=== PATIENT | female | born 1945 | race Caucasian/White ===

== ENCOUNTER 2017-12-15 20:38 | Inpatient (IN) | payer MEDICARE, OTHER ==
[~2017-12-15] VITALS: Ht 165.1 cm; Wt 78.0 kg
--- NOTE | ~2017-12-15 | PROC ---
[address] [address] PROCEDURE REPORT Name: LUIGI LOREDO Room: [address] IN M.R.#: [id number] Admission: 12/16/17 Attend Phys: Jenniffer Christiansen MD Discharge: Date of : 49 Report #: [id number] THIS REPORT FOR: //name// For GI report, Please see the Provation report in Perceptive 7 content. By: 0658Medical Records Staff DENNY /GIANA
[~2017-12-15 20:38] MED LIST: CARAFATE 1 GM TA1 G1 PO; CELEXA 20 MG TA20 M1; CELEXA 20 MG TA20 MG PO; DYAZIDE 37.5-21 EACH PO; IMIPRAMINE HCL50 M2 PO; LIPITOR20 MG PO; OMEPRAZOLE MAGN20 MG PO; VERAPAMIL E.R240 M1; VERAPAMIL E.R240 M1 PO; VERAPAMIL HCL 880 M1; VERAPAMIL HCL 880 M1 PO
[2017-12-15 20:44] VITALS: BP 186/90
[2017-12-15] MEDS ORDERED: HYDROCHLOROTHIA25 M2 PO (20:48)
[2017-12-15] MEDS ORDERED: CELEXA40 MG PO (20:48)
[2017-12-15] MEDS ORDERED: VERAPAMIL E.R240 M1 PO (20:49)
[2017-12-15] MEDS ORDERED: CALAN120 MG (20:49)
[2017-12-15] MEDS ORDERED: CRESTOR10 MG PO (20:49)
[2017-12-15] MEDS ORDERED: METFORMIN HCL500 MG PO (20:50)
[2017-12-15] MEDS ORDERED: AVAPRO 150 MG150 M1 PO (20:50)
[2017-12-15] MEDS ORDERED: CALCIUM 500 +1 EAC5 PO (20:50)
[2017-12-15] MEDS ORDERED: ASPIR 8181 MG PO (20:51)
[2017-12-15] MEDS ORDERED: VITAMINC500 PO (20:51)
[2017-12-15] MEDS ORDERED: BIOTIN 800 MCG1 EACH PO (20:51)
[2017-12-15] MEDS ORDERED: VITAMIN D1000 UNI1 PO (20:51)
[2017-12-15 21:02] LABS: ABSOLUTE BASOPHILS 0.1 thou/uL (0.0-0.2); ABSOLUTE EOSINOPHILS 0.2 thou/uL (0.0-0.7); ABSOLUTE LYMPHOCYTES 3.7 thou/uL (0.8-5.3); ABSOLUTE MONOCYTES 0.7 thou/uL (0.0-1.2); ABSOLUTE NEUTROPHILS 5.8 thou/uL (1.6-8.1); BASOPHILS 1.3 %; EOSINOPHILS 1.8 %; HEMATOCRIT 39.3 % (37.0-47.0); HEMOGLOBIN 13.6 gm/dL (12.0-15.0); LYMPHOCYTES 35.4 %; MCH 33.5 pg (26.0-34.0); MCHC 34.6 g/dL (28.0-37.0); MCV 96.6 fL (80.0-100.0); MONOCYTES 6.5 %; MPV 7.7 fl. (7.2-11.1); NUCLEATED RBCS 0 /100WBC; PLATELET COUNT* 394 thou/uL (150-400); RBC 4.07 mil/uL (4.20-5.00); RDW-CV 13.1 % (10.5-14.5); WBC 10.5 thou/uL (4.0-11.0)
[2017-12-15 21:07] LABS: ANION GAP 10 mmol/L (7-16); BUN 13 mg/dL (7-18); CALCIUM 9.6 mg/dL (8.5-10.1); CHLORIDE 100 mmol/L (98-107); CO2 30 mmol/L (21-32); CREATININE 0.8 mg/dL (0.6-1.3); GLUCOSE 125 mg/dL (70-99); SODIUM 140 mmol/L (136-145)
[2017-12-15 21:08] LABS: PROTIME 10.1 Seconds (9.20-11.50)
[2017-12-15 21:17] LABS: POTASSIUM 2.8 mmol/L (3.5-5.1)
[2017-12-15 21:18] LABS: ALBUMIN 4.4 g/dL (3.4-5.0); ALKALINE PHOSPHATASE 99 U/L (46-116); LIPASE 175 U/L (73-393); NT-PRO BRAIN NAT PEPTIDE 87 pg/mL (<300); SGOT 16 U/L (15-37); SGPT 22 U/L (30-65); TOTAL BILIRUBIN 0.7 mg/dL (<0.1-1.0); TOTAL PROTEIN 7.9 g/dL (6.4-8.2); TROPONIN-I LEVEL <0.06 ng/mL (<0.06)
[2017-12-15 23:14] LABS: URINE BILIRUBIN NEGATIVE (Negative); URINE BLOOD NEGATIVE (Negative); URINE CLARITY CLEAR; URINE COLOR YELLOW; URINE GLUCOSE-RANDOM NEGATIVE (Negative); URINE KETONES NEGATIVE (Negative); URINE LEUKOCYTES-REFLEX NEGATIVE (Negative); URINE NITRITE-REFLEX NEGATIVE (Negative); URINE PROTEIN NEGATIVE (Negative); URINE UROBILINOGEN 0.2 E.U./dl (0.2-1.0)
[2017-12-16 01:49] VITALS: BP 156/60
--- NOTE | 2017-12-16 03:13 | NUR ---
PATIENT ADMITTED TO THE FLOOR FOR CHEST PAIN. SR ON THE MONITOR. IV POTASSIUM INFUSING PER PROTOCAL. DENIES ANY FURTHER COMPLAINTS OF CP. NO SIGN OF DISTRESS. EDUCATION ON USE OF CALL LIGHT, BED CONTROL, AND TV. DENIES SOA, NO SIGN OF DISTRESS. CARE PLAN INITIATED. WILL CONT. TO MONITOR.
[2017-12-16 04:00] VITALS: BP 120/49
[2017-12-16 04:57] LABS: HEMOGLOBIN 12.7 gm/dL (12.0-15.0); MCH 32.7 pg (26.0-34.0); MCHC 34.3 g/dL (28.0-37.0); MCV 95.3 fL (80.0-100.0); RBC 3.88 mil/uL (4.20-5.00); RDW-CV 12.6 % (10.5-14.5); WBC 11.8 thou/uL (4.0-11.0)
[2017-12-16 05:44] LABS: CALCIUM 9.5 mg/dL (8.5-10.1); CREATININE 0.8 mg/dL (0.6-1.3); POTASSIUM 3.8 mmol/L (3.5-5.1); TOTAL BILIRUBIN 0.6 mg/dL (<0.1-1.0); TOTAL PROTEIN 6.8 g/dL (6.4-8.2)
[2017-12-16 07:30] VITALS: BP 151/62
[2017-12-16] MEDS ORDERED: VERAPAMIL E.R240 M1 PO (08:57)
--- NOTE | 2017-12-16 10:11 | EKG ---
[place] [address] ELECTROCARDIOGRAM REPORT Name: LUIGI LOREDO Room: [address] ADM IN M.R.#: [id number] Admission: 12/16/17 Attend Phys: Jenniffer Christiansen MD Discharge: Date of : 49 Report #: [id number] THIS REPORT FOR: //name// [facility] ED Test Date: 2017-12-15 Test Time: 20:43:32 Pat Name: LUIGI LOREDO Department: Room: [facility] Gender: F Detail Technician: EDDIE Campbell : 1945 Requested By: Michelle Ramon Order Number: [id number] MD: Jc Ocampo Measurements Intervals [place] Rate: 79 P: -42 PA: 212 QRS: -26 QRSD: 108 T: 39 QT: 407 QTc: 467 Interpretive Statements Sinus rhythm nonspecific st changes Borderline prolonged PA interval Borderline left axis deviation Low voltage, precordial leads Baseline wander in lead(s) III,aVF,V3 Compared to ECG 11/08/2015 14:34:46 Low QRS voltage now present Electronically Signed On 12-16-2017 10:11:35 CDT by Jc Ocampo [email or web address] <ELECTRONICALLY SIGNED> By: Jc Ocampo MD, FACC 12/16/17 1011 42 42 Jc Ocampo MD, FAC /EPI
[2017-12-16 12:08] VITALS: BP 157/69
--- NOTE | 2017-12-16 12:25 | NUR ---
MET WITH PT TO DISCUSS HOME SITUATION/DC PLANNING. PT LIVES ALONE. STATES SHE IS VERY INDEPENDENT AND ACTIVE. USES NO EQUIPMENT OR HOME CARE. SHE DOESN'T HAVE A DPOA, INFO AND ED GIVEN. PT PLANS TO RETURN HOME AT [place]. WILL FOLLOW
--- NOTE | 2017-12-16 14:16 | NUR ---
RECEIVED PT CARE 0700. PT IS ALERT AND ORIENTED X4. VSS. POSTPARTUM NURSE TRACING SR WITH A 1ST DEG. SHE DENIES ANY SOA. O2 SAT 100% ON ROOM AIR. UP AD JANAK IN ROOM. GAIT IS STEADY. IVF INFUSING. HOME MEDICATIONS RECONCILED WITH PATIENT AND [facility] GI WAS CONSULTED AND SAW PATIENT THIS AM. NEW ORDERS RECEIVED. NPO FOR ABDOMINAL US AND ADVANCED TO CLEAR LIQUIDS POST US. PATIENT C/O LUQ PAIN. PRN PAIN MEDICATION GIVEN WITH GOOD RELIEF. AM ASSESSMENT CHARTED. MEDS PER MAR. PATIENT UPDATED ON PLAN OF CARE AND AGREEABLE. WILL CONTINUE TO MONITOR.
--- NOTE | 2017-12-16 19:14 | NUR ---
PATIENT PROGRESSING TOWARDS GOALS. PAIN CONTROLLED WITH PRN PAIN MEDICATIONS. NO COMPLAINTS OF SOA. UP IN ROOM WITH BATHROOM PRIVILEDGES. GAIT IS STEADY. PLANNING FOR NPO AFTER 6AM TOMORROW FOR EGD TOMORROW BY DR POP. CONSENTS SIGNED AND ON FRONT OF CHART. SHE IS TOLERATING HER DIET WELL WITHOUT NAUSEA OR VOMITING. PATIENT UPDATED ON PLAN OF CARE AND IS AGREEABLE. HOURLY ROUNDING CHARTED. CALL LIGHT WITHIN REACH. WILL CONTINUE TO MONITOR.
[2017-12-16 20:00] VITALS: BP 152/70
--- NOTE | 2017-12-17 03:56 | NUR ---
PATIENT COMPLAINED OF HEADACH, TYLENOL GIVEN. FOLLOW UP PENDING. IVF AT 80 HOUR. NPO 6AM TODAY FOR EGD. NO OTHER COMPLAINTS. NO SIGN OF DISTRESS. PO INTAKE GOOD. UP WITH SBA ASSIST AT [facility]. UP AD JANAK DURING DAY. WILL PROCEED WITH CURRENT PLAN OF CARE AT THIS TIME.
[2017-12-17 03:57] VITALS: BP 129/46
[2017-12-17 05:35] LABS: ABSOLUTE BASOPHILS 0.1 thou/uL (0.0-0.2); ABSOLUTE EOSINOPHILS 0.2 thou/uL (0.0-0.7); ABSOLUTE LYMPHOCYTES 2.7 thou/uL (0.8-5.3); ABSOLUTE MONOCYTES 0.6 thou/uL (0.0-1.2); ABSOLUTE NEUTROPHILS 4.4 thou/uL (1.6-8.1); BASOPHILS 1.2 %; EOSINOPHILS 2.2 %; HEMATOCRIT 34.2 % (37.0-47.0); HEMOGLOBIN 11.8 gm/dL (12.0-15.0); LYMPHOCYTES 33.3 %; MCH 33.6 pg (26.0-34.0); MCHC 34.5 g/dL (28.0-37.0); MCV 97.1 fL (80.0-100.0); MONOCYTES 7.6 %; NUCLEATED RBCS 0 /100WBC; PLATELET COUNT* 307 thou/uL (150-400); POLYS 55.7 %; RBC 3.52 mil/uL (4.20-5.00)
[2017-12-17 06:04] LABS: CALCIUM 8.7 mg/dL (8.5-10.1); CREATININE 0.7 mg/dL (0.6-1.3); POTASSIUM 3.7 mmol/L (3.5-5.1)
[2017-12-17 09:00] VITALS: BP 125/51
[2017-12-17 17:16] VITALS: BP 137/67
[2017-12-17 20:00] VITALS: BP 133/51
--- NOTE | 2017-12-17 20:12 | NUR ---
I ASSUMED CARE OF THE PATIENT AT 0700. SHE UIS ALERT AND ORIENTED X4. BED IS IN THE LOW LOCKED POSITION AND CALL LIGHT IS IN REACH. PATIENT IS UP AD JANAK TO THE RESTROOM. HER NEEDS ARE MET AND PAIN IS MANAGED. SHE HAS A LINGERING HEADACHE THAT SEEMS TO BE BEST MANAGED WITH COFFEE. SHE HAD AN EGD AND WILL STAY FOR A PIPPIDA SCAN TOMORROW. HOURLY ROUNDING WAS COMPLETED. SHE HAS A GOOD APPETITE WHEN SHE ISN'T NPO. PATIENT HAS ANXIETY THAT SEEMS TO BE MANAGED WITH CALM CONVERSATION. SHE IS ACHS, BUT WITHOUT SLIDING SCALE. WILL CONTINUE TO MONITOR.
[2017-12-18] VITALS: BP 126/61
[2017-12-18 04:58] LABS: ABSOLUTE BASOPHILS 0.1 thou/uL (0.0-0.2); ABSOLUTE EOSINOPHILS 0.2 thou/uL (0.0-0.7); ABSOLUTE LYMPHOCYTES 3.4 thou/uL (0.8-5.3); ABSOLUTE MONOCYTES 0.7 thou/uL (0.0-1.2); ABSOLUTE NEUTROPHILS 4.4 thou/uL (1.6-8.1); BASOPHILS 1.2 %; EOSINOPHILS 2.5 %; HEMOGLOBIN 11.7 gm/dL (12.0-15.0); LYMPHOCYTES 38.7 %; MCH 33.6 pg (26.0-34.0); MCHC 34.4 g/dL (28.0-37.0); MCV 97.5 fL (80.0-100.0); MONOCYTES 7.5 %; MPV 7.8 fl. (7.2-11.1); NUCLEATED RBCS 0 /100WBC; PLATELET COUNT* 302 thou/uL (150-400); POLYS 50.1 %; RBC 3.49 mil/uL (4.20-5.00); WBC 8.8 thou/uL (4.0-11.0)
[2017-12-18 05:14] LABS: ALBUMIN 3.4 g/dL (3.4-5.0); CREATININE 0.7 mg/dL (0.6-1.3); POTASSIUM 3.3 mmol/L (3.5-5.1); TOTAL BILIRUBIN 0.8 mg/dL (<0.1-1.0); TOTAL PROTEIN 6.2 g/dL (6.4-8.2)
--- NOTE | 2017-12-18 05:31 | NUR ---
PT CARE ASSUMED AFTER REPORT. ASSESSMENT COMPLETE. MED/SURG. DENIES PAIN. NPO SINCE MIDNIGHT FOR SCAN TODAY. UP AD JANAK WITH STEADY GAIT. CALL LIGHT IN REACH. BED IN LOWEST POSITION. PROGRESSING TOWARDS GOALS.
[2017-12-18 06:48] LABS: ESR (SEDRATE) 5 mm/hr (0-30)
[2017-12-18 08:03] VITALS: BP 130/60
--- NOTE | 2017-12-18 10:03 | NUR ---
PT OFF UNIT TO NUC MED.
[2017-12-18 13:14] VITALS: BP 130/60
[2017-12-18 13:34] VITALS: BP 130/60
--- NOTE | 2018-01-04 15:01 | CON ---
[address] [address] CONSULTATION Name: LUIGI LOREDO Room: [address] IN M.R.#: [id number] Admission: 12/16/17 Attend Phys: Jenniffer Christiansen MD Discharge: 12/18/17 Date of : 49 Report #: [id number] THIS REPORT FOR: //name// CC: Jenniffer COLEMAN DO Luigi Coleman DICTATED BY: Mckenna Lawton [facility] DATE OF SERVICE: 12/16/2017 Please note at the time of this dictation, the patient was seen and physically examined by myself. REASON FOR CONSULTATION: Left upper quadrant pain radiating into her chest. HISTORY OF PRESENT ILLNESS: The patient is a 72-year-old female who presented to the Emergency Room after yesterday morning, she awakened and had a cinnamon roll. She said suddenly after eating that she had this left upper quadrant pain that radiated up into her chest. She states shortly thereafter she had a bowel movement and her symptoms subsided. She denied eating anything else the rest of the day until around 7 last evening in which she had mashed potatoes and gravy and a breaded pork chop. She states immediately after eating, she had a little bit of nausea, but no vomiting. She had pain in that left upper quadrant radiating up into her chest again like it was earlier in the day and also radiating into her back. She states she has been having this pain in her back, usually occurring on a daily basis, mainly in the evening time when she is sitting and is not physically active. Because of this pain, this prompted her to come in to be further evaluated. The patient was last seen by us in November of 2016 in which she underwent a double. It was noted on her EGD that she had Sosa's esophagus and a hiatal hernia with repeat in 2 years and to stay on her PPI. Colonoscopy showed internal hemorrhoids and to use MiraLax at that time. The patient states she is not having any difficulty swallowing at the present time. However, over the last several weeks to months, she has noted possibly intermittently an occasional inability to swallow a pill and then it will go down on its own once she relaxes and does not get anxious about it. ALLERGIES: BETA BLOCKERS and DEMEROL. MEDICATIONS: From home include omeprazole, Carafate, Celexa, hydrochlorothiazide, verapamil, Crestor, Glucophage, Avapro, Tums, vitamin C, aspirin and Biotene. PAST MEDICAL HISTORY: Hypertension, high cholesterol, anxiety and depression. She did have MRSA in 2010, [place] [address] CONSULTATION Name: LUIGI LOREDO Room: [address] IN M.R.#: [id number] Admission: 12/16/17 Attend Phys: Jenniffer Christiansen MD Discharge: 12/18/17 Date of : 49 Report #: [id number] PAST SURGICAL HISTORY: Hysterectomy and a pacemaker temporarily back in 1993. FAMILY HISTORY: Noncontributory. SOCIAL HISTORY: Denies any alcohol, tobacco or illegal drug use. REVIEW OF SYSTEMS: Twelve-point review of systems is essentially negative except what is mentioned in the HPI. PHYSICAL EXAMINATION: VITAL SIGNS: Temperature 36.8, pulse 64, respirations 16, blood pressure 151/62. HEART: Regular rate and rhythm. LUNGS: Clear. ABDOMEN: Soft, positive bowel sounds in all 4 quadrants with some slight left upper quadrant to epigastric tenderness noted to palpation. LABORATORY DATA: Hemoglobin on admission was 13.6. She is now 12.7, white count is 11.8, hematocrit is 37 and platelets 365. Sodium 141, potassium 2.8 on admission. She is up to 3.8 after replacement, chloride 101, CO2 of 30, BUN is 11, creatinine 0.8, GFR 71, glucose is 108. LFTs are completely normal. CT of the abdomen and pelvis showed a large hiatal hernia, otherwise negative. IMPRESSION: 1. Left upper quadrant pain radiating into her chest after eating. 2. History of Sosa's esophagus. Last EGD in November 2016. 3. Large hiatal hernia. 4. Dysphagia intermittently, very mild. PLAN: 1. Ultrasound of her abdomen. 2. Continue her PPI. 3. Further recommendations to be made once the ultrasound has been performed. Thank you for allowing us to participate in this patient's care. Please do not hesitate to call with any questions in regard to this consult. ADDENDUM I have personally seen and examined the patient and reviewed labs and imaging studies. The patient with left upper quadrant abdominal pain, which radiates to the chest. The patient has history of large hiatal hernia and Sosa's esophagus, which I think is contributing to this pain and discomfort. She has had upper endoscopy in 11/2016. Abdominal ultrasound has been ordered and pending results. I will consider repeating EGD and if it is negative, consider [address] [address] CONSULTATION Name: LUIGI LOREDO Room: [address]#: [id number] Admission: 12/16/17 Attend Phys: Jenniffer Christiansen MD Discharge: 12/18/17 Date of : 49 Report #: [id number] motility agents to further improve gastric emptying. This in turn will improve the dyspepsia and left upper quadrant pain. <ELECTRONICALLY SIGNED> By: Ghada Platt MD 01/04/18 1501 1146 [id number] Platt MD /nt
== END 2017-12-18 14:27 | disposition home or self-care (01) | DRG 392 ==
LOC: M.ERS 20:38 → M.TBA-ER 12-16 00:17 → M.2W 12-16 00:17
PROVIDERS: Emergency Medicine; Internal Medicine; Internal Medicine Gastroenterology; ADMIT Internal Medicine
PROC: 0DJ08ZZ Inspection of Upper Intestinal Tract, Via Natural or Artificial Opening Endoscopic (ICD-10-PCS; principal; 2017-12-17)
DX: K44.9 Diaphragmatic hernia without obstruction or gangrene (principal); R04.2 Hemoptysis; E87.6 Hypokalemia; F41.9 Anxiety disorder, unspecified; E86.0 Dehydration; I10 Essential (primary) hypertension; R13.10 Dysphagia, unspecified; E78.00 Pure hypercholesterolemia, unspecified; K22.719 Barrett's esophagus with dysplasia, unspecified; Z79.899 Other long term (current) drug therapy; Z88.8 Allergy status to other drugs, medicaments and biological substances; Z79.82 Long term (current) use of aspirin; Z86.14 Personal history of Methicillin resistant Staphylococcus aureus infection

== ENCOUNTER → 2018-01-22 | Outpatient (CLI) | payer MEDICARE, OTHER ==
[~2018-01-22] MED LIST changes: +ASPIR 8181 MG PO; +AVAPRO 150 MG150 M1 PO; +BIOTIN 800 MCG1 EACH PO; +CALAN120 MG; +CALCIUM 500 +1 EAC5 PO; +CELEXA40 MG PO; +CRESTOR10 MG PO; +HYDROCHLOROTHIA25 M2 PO; +METFORMIN HCL500 MG PO; +VITAMIN D1000 UNI1 PO; +VITAMINC500 PO
== END ==
LOC: M.NUC 07:30
DX: K31.84 Gastroparesis (principal)

== ENCOUNTER 2018-09-02 02:00 | Inpatient (IN) | payer MEDICARE, OTHER ==
[2018-09-02] VITALS (7 sets, daily range): BP systolic 127–160; BP diastolic 56–69
[~2018-09-02] VITALS: Ht 165.1 cm; Wt 74.0 kg
[2018-09-02 02:34] LABS: ABSOLUTE BASOPHILS 0.1 thou/uL (0.0-0.2); ABSOLUTE EOSINOPHILS 0.1 thou/uL (0.0-0.7); ABSOLUTE LYMPHOCYTES 3.2 thou/uL (0.8-5.3); ABSOLUTE MONOCYTES 0.7 thou/uL (0.0-1.2); ABSOLUTE NEUTROPHILS 5.9 thou/uL (1.6-8.1); BASOPHILS 1.4 %; EOSINOPHILS 1.4 %; HEMATOCRIT 39.8 % (37.0-47.0); HEMOGLOBIN 13.9 gm/dL (12.0-15.0); LYMPHOCYTES 31.6 %; MCH 33.3 pg (26.0-34.0); MCHC 34.8 g/dL (28.0-37.0); MCV 95.9 fL (80.0-100.0); MONOCYTES 6.8 %; MPV 7.5 fl. (7.2-11.1); NUCLEATED RBCS 0 /100WBC; PLATELET COUNT* 396 thou/uL (150-400); POLYS 58.8 %; RBC 4.16 mil/uL (4.20-5.00); RDW-CV 12.4 % (10.5-14.5)
[2018-09-02 02:43] LABS: ANION GAP 14 mmol/L (7-16); BUN 20 mg/dL (7-18); CALCIUM 9.1 mg/dL (8.5-10.1); CHLORIDE 99 mmol/L (98-107); CO2 25 mmol/L (21-32); CREATININE 1.2 mg/dL (0.6-1.3); GLUCOSE 169 mg/dL (70-99); POTASSIUM 3.1 mmol/L (3.5-5.1); SODIUM 138 mmol/L (136-145)
[2018-09-02 02:44] LABS: APTT 28.4 Seconds (25.0-31.3)
[2018-09-02 02:53] LABS: ALKALINE PHOSPHATASE 97 U/L (46-116); NT-PRO BRAIN NAT PEPTIDE 103 pg/mL (<300); SGOT 16 U/L (15-37); SGPT 21 U/L (30-65); TOTAL BILIRUBIN 0.6 mg/dL (<0.1-1.0); TOTAL PROTEIN 7.2 g/dL (6.4-8.2); TROPONIN-I LEVEL <0.06 ng/mL (<0.06)
[2018-09-02 04:25] LABS: URINE BILIRUBIN NEGATIVE (Negative); URINE BLOOD NEGATIVE (Negative); URINE CLARITY CLEAR; URINE COLOR YELLOW; URINE GLUCOSE-RANDOM NEGATIVE (Negative); URINE KETONES NEGATIVE (Negative); URINE LEUKOCYTES-REFLEX NEGATIVE (Negative); URINE NITRITE-REFLEX NEGATIVE (Negative); URINE PROTEIN NEGATIVE (Negative); URINE SPECIFIC GRAVITY <= 1.005 (1.005-1.030); URINE UROBILINOGEN 0.2 E.U./dl (0.2-1.0)
[2018-09-02] MEDS ORDERED: LINZESS290 MCG PO (05:52)
[2018-09-02] MEDS ORDERED: SENNA S TABLET1 EACH PO (11:06)
[2018-09-03] VITALS: BP 129/64
[2018-09-03 04:54] VITALS: BP 135/61
[2018-09-03 04:54] LABS: CALCIUM 8.9 mg/dL (8.5-10.1); CREATININE 0.7 mg/dL (0.6-1.3); POTASSIUM 4.4 mmol/L (3.5-5.1)
[2018-09-03 04:58] LABS: ABSOLUTE BASOPHILS 0.1 thou/uL (0.0-0.2); ABSOLUTE EOSINOPHILS 0.1 thou/uL (0.0-0.7); ABSOLUTE LYMPHOCYTES 2.6 thou/uL (0.8-5.3); ABSOLUTE MONOCYTES 0.5 thou/uL (0.0-1.2); ABSOLUTE NEUTROPHILS 3.5 thou/uL (1.6-8.1); BASOPHILS 1.9 %; EOSINOPHILS 1.4 %; HEMATOCRIT 34.8 % (37.0-47.0); LYMPHOCYTES 37.4 %; MCHC 34.1 g/dL (28.0-37.0); MCV 96.5 fL (80.0-100.0); MONOCYTES 7.9 %; MPV 7.6 fl. (7.2-11.1); NUCLEATED RBCS 0 /100WBC; PLATELET COUNT* 336 thou/uL (150-400); POLYS 51.4 %; RDW-CV 12.5 % (10.5-14.5); WBC 6.9 thou/uL (4.0-11.0)
[2018-09-03 05:10] LABS: HEMOGLOBIN 11.9 gm/dL (12.0-15.0)
[2018-09-03 08:45] VITALS: BP 145/71
--- NOTE | 2018-09-03 14:47 | EKG ---
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: [facility] : 1945 Requested By: Isra Panda Order Number: [id number] MD: Aidan Steele Measurements Intervals [place] Rate: 70 P: -21 [place]: 220 QRS: -18 QRSD: 90 T: 26 QT: 451 QTc: 487 Interpretive Statements Sinus rhythm Prolonged [place] interval Inferior infarct, old Compared to ECG 12/15/2017 20:43:32 Myocardial infarct finding now present ST (T wave) deviation no longer present Electronically Signed On 09-03-2018 14:47:50 DIPPER FISH by Aidan Steele [email or web address] <ELECTRONICALLY SIGNED> By: Aidan Steele MD, FAC 09/03/18 1447 0238 0238 Aidan Steele MD, [facility] /EPI
[2018-09-03] MEDS ORDERED: MIRALAX17 GM PO (15:37)
[2018-09-03 15:59] VITALS: BP 145/71
== END 2018-09-03 16:10 | disposition home or self-care (01) | DRG 392 ==
LOC: M.ERS 02:00 → M.TBA-ER 04:10 → M.2W 04:10
PROVIDERS: Family Medicine; ADMIT Internal Medicine
DX: K58.1 Irritable bowel syndrome with constipation (principal); J98.11 Atelectasis; I12.9 Hypertensive chronic kidney disease with stage 1 through stage 4 chronic kidney disease, or unspecified chronic kidney disease; N18.2 Chronic kidney disease, stage 2 (mild); E11.9 Type 2 diabetes mellitus without complications; F41.9 Anxiety disorder, unspecified; K44.9 Diaphragmatic hernia without obstruction or gangrene; K22.70 Barrett's esophagus without dysplasia; Z79.82 Long term (current) use of aspirin; Z88.8 Allergy status to other drugs, medicaments and biological substances; Z90.710 Acquired absence of both cervix and uterus; Z83.3 Family history of diabetes mellitus; Z79.899 Other long term (current) drug therapy

== ENCOUNTER → 2018-10-13 | Outpatient (CLI) | payer MEDICARE, OTHER ==
[~2018-10-13] MED LIST changes: +LINZESS290 MCG PO; +MIRALAX17 GM PO; +SENNA S TABLET1 EACH PO
[2018-10-13 11:23] LABS: POTASSIUM 3.1 mmol/L (3.5-5.1)
== END ==
LOC: M.LAB 03:54
PROVIDERS: Student in an Organized Health Care Education/Training Program
DX: Z01.812 Encounter for preprocedural laboratory examination (principal); E11.9 Type 2 diabetes mellitus without complications

== ENCOUNTER → 2020-07-12 | Outpatient (CLI) | payer MEDICARE, OTHER | LOC: M.LAB 00:38 | PROVIDERS: ATTEND Anesthesiology | DX: E87.6 Hypokalemia (principal) ==